=== PATIENT | female | born 1995 | race Caucasian/White ===

== ENCOUNTER 2016-12-25 10:59 | Emergency (ER) | payer OTHER ==
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
[2016-12-25 11:44] VITALS: BP 99/65
== END 2016-12-25 11:47 | disposition home or self-care (01) ==
LOC: UCCORT 10:59
DX: H61.21 Impacted cerumen, right ear (principal); J30.9 Allergic rhinitis, unspecified
CPT/HCPCS: 99203; G0463

== ENCOUNTER → 2017-02-27 12:35 | Emergency (ER) | payer OTHER ==
[2017-02-27 13:30] VITALS: BP 109/73
--- NOTE | 2017-02-27 14:21 | UC ---
Throat Pain/Nasal Chung HPI - HPI Summary HPI Summary: nasal congestion x 3 days + sore throat , cough no fever no chills, + body aches - History of Current Complaint Chief Complaint: UCRespiratory Stated Complaint: ST,HEADACHE,STOMACH Time Seen by Provider: 02/27/17 13:56 Hx Obtained From: Patient Hx Last Menstrual Period: 02/14/17 Onset/Duration: Gradual Onset, Lasting Days - 3, Still Present Severity: Moderate Cough: Nonproductive Associated Signs & Symptoms: Positive: Nasal Discharge. Negative: Wheezing, Hoarseness, Sinus Discomfort, Fever, Rash - Allergies/Home Medications Allergies/Adverse Reactions: Allergies Allergy/AdvReac Type Severity Reaction Status Date / Time No Known Allergies Allergy Verified 02/27/17 13:24 Home Medications: Home Medications Ibuprofen TAB* [Advil TAB*] 600 mg PO Q6H PRN 02/27/17 [History Confirmed ] PMH/Surg Hx/FS Hx/Imm Hx Previously Healthy: Yes - Surgical History Surgical History: Yes Surgery Procedure, Year, and Place: tonsillectomy - Family History Known Family History: Positive: None Negative: Diabetes - Social History Alcohol Use: None Substance Use Type: None Smoking Status (MU): Never Smoked Tobacco - Immunization History Most Recent Influenza Vaccination: NOT IN 2017 Review of Systems Constitutional: Fatigue Skin: Negative Eyes: Negative ENT: Sore Throat, Nasal Discharge Respiratory: Cough Cardiovascular: Negative Gastrointestinal: Negative Is Patient Immunocompromised?: No All Other Systems Reviewed And Are Negative: Yes Physical Exam Triage Information Reviewed: Yes Appearance: Well-Appearing, No Pain Distress, Well-Nourished Vital Signs: Initial Vital Signs Temp 98.6 F 02/27/17 13:25 Pulse 100 02/27/17 13:25 Resp 18 02/27/17 13:25 BP 109/73 02/27/17 13:25 Pulse Ox 99 02/27/17 13:25 Vital Signs Reviewed: Yes Eyes: Positive: Conjunctiva Clear ENT: Positive: Normal ENT inspection, Hearing grossly normal, Pharyngeal erythema, Nasal congestion, Nasal drainage, TMs normal Neck: Positive: Supple, Nontender, No Lymphadenopathy Respiratory: Positive: Chest non-tender, Lungs clear, Normal breath sounds Cardiovascular: Positive: RRR, No Murmur, Pulses Normal Skin Exam: Normal Throat Pain/Nasal Course/Dx - Differential Dx/Diagnosis Provider Diagnoses: uri Discharge - Discharge Plan Condition: Stable Disposition: HOME Patient Education Materials: Upper Respiratory Infection (ED) Forms: *School Release, *Work Release Referrals: Non Staff,Doctor [Primary Care Provider] - If Needed
== END | disposition home or self-care (01) ==
LOC: UCCORT 12:35
DX: J06.9 Acute upper respiratory infection, unspecified (principal); R53.83 Other fatigue
CPT/HCPCS: 87651; 99211; G0463

== ENCOUNTER 2017-06-19 13:42 | Emergency (ER) | payer OTHER ==
[2017-06-19 14:21] VITALS: BP 119/68
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
== END 2017-06-19 15:24 | disposition home or self-care (01) ==
LOC: UCCORT 13:42
DX: S86.911A Strain of unspecified muscle(s) and tendon(s) at lower leg level, right leg, initial encounter (principal); V89.2XXA Person injured in unspecified motor-vehicle accident, traffic, initial encounter; Y92.9 Unspecified place or not applicable
CPT/HCPCS: 99211; G0463